=== PATIENT | male | born 1965 | race Caucasian/White ===

== ENCOUNTER 2018-12-07 07:23 | Inpatient (IN) | payer OTHER ==
[2018-12-07] VITALS (28 sets, daily range): BP systolic 99–151; BP diastolic 46–85; PULSE 70–88; RESP 11–21; Ht 188 cm; Wt 122.9 kg
[~2018-12-07] VITALS: Ht 188 cm; Wt 122.9 kg
--- NOTE | 2018-12-07 05:52 | HPN ---
Date/Time of Note Date/Time of Note DATE: 12/07/18 TIME: 05:52 Interval H&P Admission Note Pt. seen H&P reviewed: No system changes PERI RICHARD MD Dec 07, 2018 05:52
--- NOTE | 2018-12-07 05:55 | OPR ---
Date/Time of Note Date/Time of Note DATE: 12/07/18 TIME: 05:53 Operative Report Procedure Date: Dec 07, 2018 Preoperative Diagnosis Right hip primary arthritis Postoperative Diagnosis Right hip primary arthritis Operation/Procedure Performed 1. Right total hip arthroplasty 2. Right hip injection of PRP solution Surgeon see signature line Farm Hand Praveen Alberts DO [employer]: DARYL FLOOD PA-C Anesthesia Type: general Estimated Blood Loss: 200 - 250 ml's Transfusion none Specimen None Grafts/Implants See op note Tubes/Drains BRUSH OPERATOR SURGEON:Praveen Alberts DO was integral to the positioning and assistance necessary in the exposure of the hip joint as well as protection of the neurovascular structures. In my opinion at the assistance offered by a lead technologist in cytogenetics is insufficient and Mr. eKrr should be compensated for his time. PROCEDURE IN DETAIL: Following the administration of general endotracheal anesthesia supplemented with a spinal anesthetic, the patient was placed in the supine position. The antecubital fossa on the right was prepped and 60 cc of blood were aspirated. Under sterile conditions, the blood was passed off to the indirect sales representative from the company who prepared the PRP solution. The right lower extremity was then prepped and draped in the usual sterile fa shion. A sole seamer radiograph was obtained for preliminary limb length and femoral size as well as acetabular size. A lateral incision was then made exposing the tensor fascia the fascia was incised the tensor was retracted laterally and the vessels were cauterized. The anterior capsule was then identified and prepared. A capsulectomy was then performed and the femoral head was then evaluated. Severe arthritic changes were noted. A femoral head cut was then made in the appropriate degree of version and in clination. Following dislocation, severe arthritic changes were noted with very certain severe cystic changes in the femoral head. The acetabulum was then exposed and a capsulectomy and labrectomy were completed. The central portion was then entered and serially reamed up to the 47 mm size. A Depuy [place] cup which was 48 mm, with a standard liner was then fit into position with solid fixation. A 30 mm screw was used for additional fixation. Attention was then directed to the femur, the femur was exposed and prepared. The canal was entered and serially reamed up to the size 3. The femoral canal was then thoroughly irrigated and the PRP solution was then instilled into the femoral canal. A size 3 Depuy Actis stem was then inserted with solid fixation. A 28 mm, +1.5 mm femoral head, which was ceramic was then inserted. The leg was taken through full range of motion with no evident instability. In addition, radiographs revealed excellent position with reproduction of the limb lengths within a millimeter. The wound was irrigated thoroughly. The wound was then closed in layers and a Prenio for the final cover. This was watertight. Estimated blood loss was procedure was 200 cc. Postoperative radiographs will be obtained in the recovery room. Complications none Pt Condition Post Procedure: stable Disposition: PACU Procedure Description BRUSH OPERATOR SURGEON:Praveen Alberts DO was integral to the positioning and a ssistance necessary in the exposure of the hip joint as well as protection of the neurovascular structures. In my opinion at the assistance offered by a lead technologist in cytogenetics is insufficient and he should be compensated for his time. PROCEDURE IN DETAIL: Following the administration of general endotracheal anesthesia supplemented with a spinal anesthetic, the patient was placed in the supine position. The antecubital fossa on the right was prepped and 60 cc of blood were aspirated. Under sterile conditions, the blood was passed off to the indirect sales representative from the company who prepared the PRP solution. The right lower extremity was then prepped and draped in the usual sterile fashion. A sole seamer radiograph was obtained for preliminary limb length and femoral size as well as acetabular size. A lateral incision was then made exposing the tensor fascia the fascia was incised the tensor was retracted laterally and the vessels were cauterized. The anterior capsule was then identified and prepared. A capsulectomy was then performed and the femoral head was then evaluated. Severe arthritic changes were noted. A femoral head cut was then made in the appropriate degree of version and inclination. Following dislocation, severe arthritic changes were noted with very certain severe cystic changes in the femoral head. The acetabulum was then exposed and a capsulectomy and labrectomy were comp leted. The central portion was then entered and serially reamed up to the 47 mm size. A Depuy [place] cup which was 54 mm, with a standard liner was then fit into position with solid fixation. A 30 mm screw was used for additional fixation. Attention was then directed to the femur, the femur was exposed and prepared. The canal was entered and serially reamed up to the size 5. The femoral canal was then thoroughly irrigated and the PRP solution was then instilled into the femoral canal. A size 5Depuy Actis stem was then inserted with solid fixation. A 32 mm, +5 mm femoral head, which was ceramic was then inserted. The leg was taken through full range of motion with no evident instability. In addition, radiographs revealed excellent position with reproduction of the limb lengths within a millimeter. The wound was irrigated thoroughly. The wound was then closed in layers and a Prenio for the final cover. This was watertight. Estimated blood loss was procedure was 250 cc. Postoperative radiographs will be obtained in the recovery room. Complications none PERI RICHARD MD Dec 07, 2018 05:54
[~2018-12-07 07:23] MED LIST: BUPIVACAINE 0.5% (SDV) 30 ML, morphine SULFATE (PF) 8 MG, EPINEPHrine 0.3 MG, KETOROLAC... IRR SCH; CEFAZOLIN 1 GM INJ ONE; CEFAZOLIN 2 GM/50 ML (PMX) 50 ML IVPB ONE; DESFLURANE 15 MIN ONE; DEXAMETHASONE 1 MG TAB PO ONE; GABAPENTIN 300 MG CAP PO ONE; SOD CHLORIDE 0.9% 100 ML, TRANEXAMIC ACID 3,000 MG IRR ONE; SUCCINYLCHOLINE CHLORIDE 100 MG/5 ML SYG IV ONE; TRANEXAMIC ACID 1GM/100ML(PMX) 100 ML IVPB ONE
[2018-12-07] MEDS ORDERED: BUPR300F3 BC (08:31)
[2018-12-07] MEDS ORDERED: ATOR20TA38 PO (08:31)
[2018-12-07] MEDS ORDERED: GABA300C16 PO (08:32)
[2018-12-07] MEDS ORDERED: FLUO20CA38 PO (08:32)
[2018-12-07] MEDS ORDERED: LABE200T25 PO (08:33)
[2018-12-07] MEDS ORDERED: HYDR-3672 PO (08:33)
[2018-12-07] MEDS ORDERED: METF500T3 PO (08:34)
[2018-12-07] MEDS ORDERED: METH750T2 PO (08:35)
[2018-12-07] MEDS ORDERED: OXYC-431 PO (08:36)
[2018-12-07] MEDS ORDERED: VALS160T20 PO (08:37)
[2018-12-07] MEDS ORDERED: SOD CHLORIDE 0.9% 1,000 ML IV SCH (09:00)
[2018-12-07] MEDS ORDERED: THROMBIN 5000 UNIT VIAL ONE (09:26)
[2018-12-07] MEDS ORDERED: CA CHLORIDE (GM) 10% 10 ML INJ ONE (09:27)
[2018-12-07] MEDS ORDERED: POLYMYXIN/BACITRACIN 1L IRRIG ONE (09:27)
--- NOTE | 2018-12-07 09:38 | PREAC ---
Date/Time of Note Date/Time of Note DATE: 12/07/18 TIME: 09:36 Anesthesia Eval and Record Evaluation Time Pre-Procedure Interview DATE: 12/07/18 TIME: 09:36 Age 53 Sex male NPO: 8 hrs Preoperative diagnosis right hip primary OA Planned procedure Right hip replacement Past Medical History Past Medical History: Includes Cardio: HTN, Other (EF 52 % cardiology note) Endo: Diabetes Pulm: Sleep Apnea GI: Morbid obesity Surgery & Anesthesia Issues No known issue Meds Anticoagulation: No Beta Clair within 24 hr: Yes Reason Beta Clair not given: Pt. not on B-Clair Reported Medications Valsartan* (Diovan*) 160 Mg Tablet, 160 MG PO DAILY, TAB 12/07/18 Oxycodone HCl/Acetaminophen (Oxycodone-Acetaminophen 10-325) 1 Each Tablet, 1 EACH PO Q12 PRN for SEVERE PAIN LEVEL 7-10, TAB 12/07/18 Methocarbamol* (Methocarbamol*) 750 Mg Tablet, 750 MG PO TID PRN for MUSCLE SPASMS, TAB 12/07/18 Metformin Hcl* (Metformin Hcl* ER) 500 Mg Tab.sr.24h, 500 MG PO BID, #30 TAB 12/07/18 Labetalol Hcl* (Labetalol Hcl*) 200 Mg Tablet, 400 MG PO BID, TAB 12/07/18 Hydralazine Hcl* (Hydralazine Hcl*) 50 Mg Tab, 50 MG PO BID, #90 TAB 12/07/18 Gabapentin* (Gabapentin*) 300 Mg Capsule, 600 MG PO TID, #180 CAP 12/07/18 Fluoxetine Hcl* (Prozac*) 20 Mg Capsule, 20 MG PO DAILY, CAP 12/07/18 Buprenorphine HCl (Belbuca) 300 Mcg Film, 300 MCG BC BID, FILM 12/07/18 Atorvastatin Calcium* (Atorvastatin Calcium*) 20 Mg Tablet, 20 MG PO QHS, #30 TAB 12/07/18 Current Medications Bupivacaine HCl/ Morphine Sulfate/ Epinephrine/ Ketorolac Tromethamine/ Clon idine/Sodium Chloride/ Vancomycin HCl INTRA-OP IRR ; Start 12/07/18 at 06:00 Sodium Chloride 1,000 ml @ 30 mls/hr Q24H IV Last administered on 12/07/18at 08:56; Admin Dose 30 MLS/HR; Start 12/07/18 at 09:00 Meds reviewed: Yes Allergies Coded Allergies: No Known Allergy (Unverified , 12/07/18) Allergies Reviewed: Yes Labs/Studies Labs Reviewed: Reviewed by anesthesiologist test: N/A Studies: ECG (sr), CXR (nl) Pre-procedure Exam Last vitals Vital Signs Date Temp Pulse Resp B/P (MAP) Pulse Ox O2 O2 Flow FiO2 Time Delivery Rate 12/07/18 98.1 79 16 120/70 98 Room Air 09:00 (87) Airway: Adequate thyromental dist Mallampati: Mallampati III Teeth: Normal Lung: Normal Heart: Normal ASA Physical Status ASA physical status: 2 Emergency: None Planned Anesthetic General/MAC: ETT Planned Pain Management Parenteral pain med Pre-operative Attestations Prior to commencing anesthesia and surgery, the patient was re-evaluated, there was verification of: *The patient's identity *The results of appropriate recent lab work and preoperative vital signs *The above evaluation not changing prior to induction *Anesthetic plan, risk benefits, alternative and complications discussed with patient/family; questions answered; patient/family understands, accepts and wishes to proceed. KAMARI VARNER MD Dec 07, 2018 09:38
[2018-12-07] MEDS ORDERED: HYDROmorphONE 1 MG/5 ML IV SYRINGE IV PRN ×3 (10:00)
[2018-12-07] MEDS ORDERED: DIPHENHYDRAMINE 50 MG INJ IV PRN (10:00)
[2018-12-07] MEDS ORDERED: ONDANSETRON 4 MG INJ IV PRN ×2 (10:00→12:00)
[2018-12-07] MEDS ORDERED: MEPERIDINE 25 MG INJ IV PRN (10:00)
[2018-12-07] MEDS ORDERED: MIDAZOLAM 1 MG/ML 2 ML INJ ONE (10:03)
[2018-12-07] MEDS ORDERED: METOCLOPRAMIDE 10 MG INJ ONE (10:03)
[2018-12-07] MEDS ORDERED: ONDANSETRON 4 MG INJ ONE (10:03)
[2018-12-07] MEDS ORDERED: PROPOFOL 20 ML ONE ×2 (10:03→10:18)
[2018-12-07] MEDS ORDERED: ROCURONIUM 50 MG INJ ONE ×2 (10:03→10:16)
[2018-12-07] MEDS ORDERED: FENTAnyl 50 MCG/ML VIAL ONE (10:07)
[2018-12-07] MEDS ORDERED: CEFAZOLIN 1 GM INJ ONE (10:11)
[2018-12-07] MEDS ORDERED: TRANEXAMIC ACID 1GM/100ML(PMX) 100 ML ONE (10:18)
[2018-12-07] MEDS ORDERED: morphine SULFATE/PF (10 MG/10 ML) INJ ONE (10:18)
[2018-12-07] MEDS ORDERED: EPHEDrine 25 MG/5 ML SYG ONE (10:24)
[2018-12-07] MEDS ORDERED: KETOROLAC 30 MG INJ ONE (11:42)
[2018-12-07] MEDS ORDERED: GLYCOPYRROLATE 0.4 MG INJ ONE (11:46)
[2018-12-07] MEDS ORDERED: NEOSTIGMINE 3 MG/3 ML SYRINGE ONE (11:46)
[2018-12-07] MEDS: DEXAMETHASONE 2 MG TAB PO SCH ×3 (12:00→23:28)
[2018-12-07] MEDS ORDERED: MAGNESIUM HYDROXIDE 30ML CUP PO PRN (12:00)
[2018-12-07] MEDS ORDERED: ZOLPIDEM 5 MG TAB PO PRN (12:00)
[2018-12-07] MEDS ORDERED: NACL 0.9% 3 ML SYG IV SCH (12:00)
[2018-12-07] MEDS ORDERED: oxyCODONE 5 MG TAB PO PRN ×2 (12:00)
--- NOTE | 2018-12-07 13:25 | PAC ---
Date/Time of Note Date/Time of Note DATE: 12/07/18 TIME: 13:24 Post-Anesthesia Notes Post-Anesthesia Note Last documented vital signs Vital Signs Date Temp Pulse Resp B/P (MAP) Pulse Ox O2 O2 Flow FiO2 Time Delivery Rate 12/07/18 99.0 84 15 133/71 96 Nasal 13:00 (91) Cannula 12/07/18 2.0 12:55 12/07/18 99.1 12:22 Activity: WNL Respiratory function: WNL Cardiovascular function: WNL Mental status: Baseline Pain reasonably controlled: Yes Hydration appropriate: Yes Nausea/Vomiting absent: No KAMARI VARNER MD Dec 07, 2018 13:25
[2018-12-07] MEDS: CEFAZOLIN 1 GM/50 ML (PMX) 50 ML IVPB SCH ×2 (13:34→21:50)
[2018-12-07] MEDS: ACETAMINOPHEN 1000MG/100ML IV 100 ML IVPB SCH ×2 (13:48→19:55)
[2018-12-07] MEDS: HYDROmorphONE 1 MG/ML SYG IV PRN ×2 (15:37→22:27)
[2018-12-07] MEDS: oxyCODONE 5 MG TAB PO PRN ×2 (19:40→23:28)
[2018-12-07] MEDS: LACTATED RINGER'S 1,000 ML IV SCH ×2 (19:55→21:45)
[2018-12-07] MEDS ORDERED: BUPRENORPHINE HCL 300 MCG BC SCH (21:00)
[2018-12-07] MEDS: LABETALOL 200 MG TAB PO SCH (21:00)
[2018-12-07] MEDS: ATORVASTATIN 20 MG TAB PO SCH (21:49)
[2018-12-07] MEDS: METHOCARBAMOL 750 MG TAB PO PRN (21:49)
[2018-12-07] MEDS: GABAPENTIN 300 MG CAP PO SCH (21:49)
[2018-12-07] MEDS: SENNA/DOCUSATE NA (8.6MG/50MG) TAB PO SCH (21:50)
[2018-12-08] MEDS: HYDROmorphONE 1 MG/ML SYG IV PRN ×5 (02:30→20:27)
[2018-12-08 02:49] VITALS: BP 132/85; PULSE 86; RESP 18
[2018-12-08] MEDS: oxyCODONE 5 MG TAB PO PRN ×5 (03:22→22:22)
[2018-12-08] MEDS: ACETAMINOPHEN 1000MG/100ML IV 100 ML IVPB SCH (04:07)
[2018-12-08] MEDS: CEFAZOLIN 1 GM/50 ML (PMX) 50 ML IVPB SCH (05:20)
[2018-12-08] MEDS: DEXAMETHASONE 2 MG TAB PO SCH (05:20)
--- NOTE | 2018-12-08 06:10 | PN ---
Date/Time of Note Date/Time of Note DATE: 12/08/18 TIME: 06:09 Subjective Awake and alert this morning. Minimal complaints. Objective Vitals Vital Signs Date Temp Pulse Resp B/P (MAP) Pulse Ox O2 O2 Flow FiO2 Time Delivery Rate 12/08/18 98.0 86 18 132/85 96 Nasal 2.0 02:49 (101) Cannula Intake and Output 12/07/18 12/07/18 12/08/18 1515:00 23:00 07:00 IntakeIntake Total 2100 ml 1510 ml 1900 ml OutputOutput Total 300 ml 1150 ml BalanceBalance 1800 ml 1510 ml 750 ml Wound is clean and dry. Neurologically intact. No signs of DVT. Results Result Diagram: 12/07/18 1249 Medications Medications Current Medications Sodium Chloride 1,000 ml @ 30 mls/hr Q24H IV Last administered on 12/07/18at 08:56; Admin Dose 30 MLS/HR; Start 12/07/18 at 09:00 Atorvastatin Calcium (Lipitor) 20 mg QHS PO Last administered on 12/07/18at 21:49; Admin Dose 20 MG; Start 12/07/18 at 21:00 Fluoxetine HCl (Prozac) 20 mg DAILY PO ; Start 12/08/18 at 09:00 Hydralazine HCl (Apresoline) 50 mg BID PO ; Start 12/07/18 at 21:00 Labetalol HCl (Normodyne) 400 mg BID PO ; Start 12/07/18 at 21:00 Metformin HCl (Glucophage) 500 mg BID WITH MEALS PO ; Start 12/08/18 at 07:50 Methocarbamol (Robaxin) 750 mg TID PRN PO MUSCLE SPASMS Last administered on 12/07/18at 21:49; Admin Dose 750 MG; Start 12/07/18 at 12:00 Miscellaneous Information 300 mcg BID BC ; Start 12/07/18 at 21:00; Status UNV Losartan Potassium (Cozaar) 100 mg DAILY PO ; Start 12/08/18 at 09:00 Lactated Ringer's 1,000 ml @ 100 mls/hr Q10H IV Last administered on 12/07/18at 19:55; Admin Dose 100 MLS/HR; Start 12/07/18 at 11:45 Cefazolin Sodium 50 ml @ 100 mls/hr Q8H IVPB Last administered on 12/08/18 05:20; Admin Dose 100 MLS/HR; Start 12/07/18 at 14:00; Stop 12/08/18 at 06:29 Senna/Docusate Sodium (Senokot-S) 1 tab BID PO Last administered on 12/07/18 21:50; Admin Dose 1 TAB; Start 12/07/18 at 21:00 Simethicone (Mylicon) 80 mg TID PRN PO .GAS; Start 12/07/18 at 12:00 Magnesium Hydroxide (Milk Of Mag) 30 ml BID PRN PO .CONSTIPATION; Start 12/07/18 at 12:00 Magnesium Hydroxide (Milk Of Mag) 30 ml HS PO ; Start 12/09/18 at 21:00 Gabapentin (Neurontin) 300 mg HS PO Last administered on 12/07/18at 21:49; Admin Dose 300 MG; Start 12/07/18 at 21:00 Oxycodone HCl (Roxicodone) 15 mg Q4H PRN PO .PAIN Last administered on 12/08/18 03:22; Admin Dose 15 MG; Start 12/07/18 at 12:00 Oxycodone HCl (Roxicodone) 10 mg Q4H PRN PO .PAIN; Start 12/07/18 at 12:00 Oxycodone HCl (Roxicodone) 5 mg Q4H PRN PO .PAIN; Start 12/07/18 at 12:00 Hydromorphone HCl (Dilaudid) 1 mg Q4H PRN IV .BREAKTHROUGH PAIN Last administered on 12/08/18 02:30; Admin Dose 1 MG; Start 12/07/18 at 12:00 Ondansetron HCl (Zofran Inj) 4 mg Q6H PRN IV NAUSEA/VOMITING; Start 12/07/18 at 12:00 Diphenhydramine HCl (Benadryl) 25 mg Q6H PRN IV .PRURITUS; Start 12/07/18 at 12:00 Zolpidem Tartrate (Ambien) 10 mg HS PRN PO .INSOMNIA; Start 12/07/18 at 12:00 IV Flush (NS 3 ml) 3 ml per protocol IV ; Start 12/07/18 at 12:00 Aspirin (Ecotrin) 325 mg DAILY PO ; Start 12/08/18 at 09:00 VTE Prophylaxis Risk score (from Ns)>0 risk: 9 SCD applied (from [facility] [place] Yes Lines/Catheters IV Catheter Type: Saline Lock Bean in Place: No Assessment/Plan Assessment/Plan Assessment: Status post total hip replacement Plan: Begin physical therapy this morning. Discharge when cleared by PT PERI RICHARD MD Dec 08, 2018 06:10
--- NOTE | 2018-12-08 06:11 | DS ---
Date/Time of Note Date/Time of Note DATE: 12/08/18 TIME: 06:10 Discharge Summary Admission/Discharge Info Admit Date/Time Dec 07, 2018 at 07:23 Discharge Date/Time December 08 Discharge Diagnosis Hip arthritis Patient Condition: Good Hospital Course Patient was admitted and underwent uncomplicated procedure. Following clearance by physical therapy he is seen to be discharged home Home Meds Reported Medications Valsartan* (Diovan*) 160 Mg Tablet, 160 MG PO DAILY, TAB 12/07/18 Oxycodone HCl/Acetaminophen (Oxycodone-Acetaminophen 10-325) 1 Each Tablet, 1 E ACH PO Q12 PRN for SEVERE PAIN LEVEL 7-10, TAB 12/07/18 Methocarbamol* (Methocarbamol*) 750 Mg Tablet, 750 MG PO TID PRN for MUSCLE SPASMS, TAB 12/07/18 Metformin Hcl* (Metformin Hcl* ER) 500 Mg Tab.sr.24h, 500 MG PO BID, #30 TAB 12/07/18 Labetalol Hcl* (Labetalol Hcl*) 200 Mg Tablet, 400 MG PO BID, TAB 12/07/18 Hydralazine Hcl* (Hydralazine Hcl*) 50 Mg Tab, 50 MG PO BID, #90 TAB 12/07/18 Gabapentin* (Gabapentin*) 300 Mg Capsule, 600 MG PO TID, #180 CAP 12/07/18 Fluoxetine Hcl* (Prozac*) 20 Mg Capsule, 20 MG PO DAILY, CAP 12/07/18 Buprenorphine HCl (Belbuca) 300 Mcg Film, 300 MCG BC BID, FILM 12/07/18 Atorvastatin Calcium* (Atorvastatin Calcium*) 20 Mg Tablet, 20 MG PO QHS, #30 TAB 12/07/18 Primary Care Provider Not On Staff Doctor Pending Labs Laboratory Tests Test 12/07/18 08:40 12/07/18 12:49 12/07/18 22:00 12/08/18 04:58 Bedside 133 135 Glucose mg/dL (70-220) mg/dL (70-220) White Blood 9.7 Pending Count 10^3/ul (4.8-10 .8) Red Blood 4.50 Pending Count 10^6/ul (4.70-6 .10) Hemoglobin 12.9 Pending g/dl (14.0-18.0 ) Hematocrit 40.1 Pending % (42.0-52.0) Mean 89.1 Pending Corpuscular fl (82.0-101.0) Volume Mean 28.7 Pending Corpuscular pg (29.0-33.0) Hemoglobin Mean 32.2 Pending Corpuscular g/dl (32.0-37.0 Hemoglobin Conc ) ent Red Cell 13.2 Pending Distribution % (11.5-14.5) Width Platelet Count 247 Pending 10^3/UL (140-41 5) Mean Platelet 9.6 Pending Volume fl (7.4-10.4) Immature 0.500 Granulocytes % % (0.001-0.429) Neutrophils % 89.1 % (39.0-77.0) Lymphocytes % 7.4 % (15.0-51.0) Monocytes % 2.5 % (0.0-11.0) Eosinophils % 0.3 % (0.0-7.0) Basophils % 0.2 % (0.0-2.0) Nucleated Red 0.0 Blood Cells % /100WBC (0.0-0. 0) Immature 0.050 Granulocytes # 10^3/ul (0.0-0. 031) Neutrophils # 8.6 10^3/ul (1.6-7. 5) Lymphocytes # 0.7 10^3/ul (0.8-2. 9) Monocytes # 0.2 10^3/ul (0.3-0. 9) Eosinophils # 0.0 10^3/ul (0.0-0. 5) Basophils # 0.0 10^3/ul (0.0-0. 1) Nucleated Red 0.0 Blood Cells # 10^3/ul (0.0-0. 0) PERI RICHARD MD Dec 08, 2018 06:11
--- NOTE | 2018-12-08 07:01 | PDOCDIS ---
Discharge Instructions DIAGNOSIS Discharge Diagnosis Hip arthritis CONDITION [id number] Patient Condition: [id number] Good HOME CARE INSTRUCTIONS: [id number] Diet Instructions: [id number] Regular ACTIVITY: [id number] Activity Restrictions: [id number] Slowly Increase Activity [id number] Bathing Restrictions: [id number] Shower FOLLOW UP/APPOINTMENTS Follow-up Plan 2 weeks SCHOOL/WORK RELEASE May return to School/Work with: With Restrictions School/Work Release Comment: No hip extension for six weeks PERI RICHARD MD Dec 08, 2018 07:01
[2018-12-08 07:32] VITALS: BP 160/62; RESP 19
[2018-12-08] MEDS: LACTATED RINGER'S 1,000 ML IV SCH (07:45)
[2018-12-08] MEDS: ASPIRIN (EC) 325 MG TAB PO SCH (08:44)
[2018-12-08] MEDS: metFORMIN 500 MG TAB PO SCH ×2 (08:44→18:07)
[2018-12-08] MEDS: FLUOXETINE 20 MG CAP PO SCH (08:44)
[2018-12-08] MEDS: SENNA/DOCUSATE NA (8.6MG/50MG) TAB PO SCH ×2 (08:44→20:21)
[2018-12-08] MEDS: LABETALOL 200 MG TAB PO SCH ×2 (08:47→20:20)
[2018-12-08] MEDS: LOSARTAN 50 MG TAB PO SCH (08:48)
[2018-12-08 14:28] VITALS: BP 151/62; RESP 18
[2018-12-08 19:35] VITALS: BP 163/80; PULSE 78; RESP 18
[2018-12-08] MEDS: ATORVASTATIN 20 MG TAB PO SCH (20:19)
[2018-12-08] MEDS: GABAPENTIN 300 MG CAP PO SCH (20:21)
[2018-12-08] MEDS: DIPHENHYDRAMINE 50 MG INJ IV PRN (22:30)
[2018-12-09 02:30] VITALS: BP 144/76; PULSE 65; RESP 18
[2018-12-09 07:56] VITALS: BP_SYST 177; BP_DIAS 9; BP_DIAS 90; PULSE 72; RESP 18
[2018-12-09] MEDS: oxyCODONE 5 MG TAB PO PRN ×4 (08:27→20:57)
[2018-12-09] MEDS: metFORMIN 500 MG TAB PO SCH ×2 (08:42→17:56)
[2018-12-09] MEDS: SENNA/DOCUSATE NA (8.6MG/50MG) TAB PO SCH ×2 (08:42→20:51)
[2018-12-09] MEDS: FLUOXETINE 20 MG CAP PO SCH (08:42)
[2018-12-09] MEDS: ASPIRIN (EC) 325 MG TAB PO SCH (08:43)
[2018-12-09] MEDS: LABETALOL 200 MG TAB PO SCH ×2 (08:43→20:51)
[2018-12-09] MEDS: LOSARTAN 50 MG TAB PO SCH (08:43)
[2018-12-09] MEDS: METHOCARBAMOL 750 MG TAB PO PRN ×2 (10:33→17:56)
[2018-12-09 14:00] VITALS: BP 148/78; PULSE 70; RESP 18
[2018-12-09 19:30] VITALS: BP 167/86; PULSE 75; RESP 18
[2018-12-09] MEDS: GABAPENTIN 300 MG CAP PO SCH (20:49)
[2018-12-09] MEDS: ATORVASTATIN 20 MG TAB PO SCH (20:51)
[2018-12-09] MEDS ORDERED: MAGNESIUM HYDROXIDE 30ML CUP PO SCH (21:00)
[2018-12-09] MEDS: DIPHENHYDRAMINE 50 MG INJ IV PRN (22:57)
[2018-12-10 02:00] VITALS: BP 164/79; PULSE 71; RESP 18
[2018-12-10] MEDS: oxyCODONE 5 MG TAB PO PRN ×3 (02:33→12:49)
[2018-12-10 07:00] VITALS: BP 179/88; PULSE 60; RESP 18
--- NOTE | 2018-12-10 08:33 | PN ---
Date/Time of Note Date/Time of Note DATE: 12/10/18 TIME: 08:32 Subjective Better and feels more stable Objective Vitals Vital Signs Date Temp Pulse Resp B/P (MAP) Pulse Ox O2 O2 Flow FiO2 Time Delivery Rate 12/10/18 98.3 71 18 164/79 97 02:00 (107) 12/09/18 Nasal 2.0 22:01 Cannula Intake and Output 12/09/18 12/09/18 12/10/18 1515:00 23:00 07:00 IntakeIntake Total 2000 ml BalanceBalance 2000 ml Wound cleand and Dry. CMS intact. No signs DVT Results Result Diagram: 12/10/18 0445 Medications Medications Current Medications Atorvastatin Calcium (Lipitor) 20 mg QHS PO Last administered on 12/09/18 20:51; Admin Dose 20 MG; Start 12/07/18 at 21:00 Fluoxetine HCl (Prozac) 20 mg DAILY PO Last administered on 12/09/18 08:42; Ad min Dose 20 MG; Start 12/08/18 at 09:00 Hydralazine HCl (Apresoline) 50 mg BID PO Last administered on 12/09/18 20:52; Admin Dose 50 MG; Start 12/07/18 at 21:00 Labetalol HCl (Normodyne) 400 mg BID PO Last administered on 12/09/18 20:51; Admin Dose 400 MG; Start 12/07/18 at 21:00 Metformin HCl (Glucophage) 500 mg BID WITH MEALS PO Last administered on 12/09/18 17:56; Admin Dose 500 MG; Start 12/08/18 at 07:50 Methocarbamol (Robaxin) 750 mg TID PRN PO MUSCLE SPASMS Last administered on 17:56; Admin Dose 750 MG; Start 12/07/18 at 12:00 Miscellaneous Information 300 mcg BID BC ; Start 12/07/18 at 21:00; Status UNV Losartan Potassium (Cozaar) 100 mg DAILY PO Last administered on 12/09/18 08:43; Admin Dose 100 MG; Start 12/08/18 at 09:00 Senna/Docusate Sodium (Senokot-S) 1 tab BID PO Last administered on 12/09/18 20:51; Admin Dose 1 TAB; Start 12/07/18 at 21:00 Simethicone (Mylicon) 80 mg TID PRN PO .GAS; Start 12/07/18 at 12:00 Magnesium Hydroxide (Milk Of Mag) 30 ml BID PRN PO .CONSTIPATION; Start 12/07/18 at 12:00 Magnesium Hydroxide (Milk Of Mag) 30 ml HS PO Last administered on 12/09/18 20:52; Admin Dose 30 ML; Start 12/09/18 at 21:00 Gabapentin (Neurontin) 300 mg HS PO Last administered on 12/09/18 20:49; Admin Dose 300 MG; Start 12/07/18 at 21:00 Oxycodone HCl (Roxicodone) 15 mg Q4H PRN PO .PAIN Last administered on 12/10/18 08:24; Admin Dose 15 MG; Start 12/07/18 at 12:00 Oxycodone HCl (Roxicodone) 10 mg Q4H PRN PO .PAIN; Start 12/07/18 at 12:00 Oxycodone HCl (Roxicodone) 5 mg Q4H PRN PO .PAIN; Start 12/07/18 at 12:00 Hydromorphone HCl (Dilaudid) 1 mg Q4H PRN IV .BREAKTHROUGH PAIN Last administered on 12/08/18 20:27; Admin Dose 1 MG; Start 12/07/18 at 12:00 Ondansetron HCl (Zofran Inj) 4 mg Q6H PRN IV NAUSEA/VOMITING; Start 12/07/18 at 12:00 Diphenhydramine HCl (Benadryl) 25 mg Q6H PRN IV .PRURITUS Last administered on 12/09/18 22:57; Admin Dose 25 MG; Start 12/07/18 at 12:00 Zolpidem Tartrate (Ambien) 10 mg HS PRN PO .INSOMNIA; Start 12/07/18 at 12:00 IV Flush (NS 3 ml) 3 ml per protocol IV ; Start 12/07/18 at 12:00 Aspirin (Ecotrin) 325 mg DAILY PO Last administered on 12/09/18 08:43; Admin Dose 325 MG; Start 12/08/18 at 09:00 Miscellaneous Information (*Order Clarification Bulletin) MEDICATION REQUIRES CLARIFICATI... Q8H XX ; Start 12/08/18 at 09:00 VTE Prophylaxis Risk score (from Ns)>0 risk: 8 SCD applied (from [facility]): Yes Lines/Catheters IV Catheter Type: Saline Lock Bean in Place: No Assessment/Plan Hospital Course Patient was admitted and underwent uncomplicated procedure. Following clearance by physical therapy he is seen to be discharged home Assessment/Plan A: S/p THR with slow mobilization P: Home this AM after PT PERI RICHARD MD Dec 10, 2018 08:33
[2018-12-10] MEDS: FLUOXETINE 20 MG CAP PO SCH (08:38)
[2018-12-10] MEDS: metFORMIN 500 MG TAB PO SCH (08:39)
[2018-12-10] MEDS: ASPIRIN (EC) 325 MG TAB PO SCH (08:39)
[2018-12-10] MEDS: LABETALOL 200 MG TAB PO SCH (08:39)
[2018-12-10] MEDS: SENNA/DOCUSATE NA (8.6MG/50MG) TAB PO SCH (08:39)
[2018-12-10] MEDS: LOSARTAN 50 MG TAB PO SCH (08:39)
[2018-12-10 14:00] VITALS: BP 149/69; PULSE 62; RESP 18
[2018-12-10] MEDS: METHOCARBAMOL 750 MG TAB PO PRN (14:49)
== END 2018-12-10 16:05 | disposition home or self-care (01) | DRG 470 ==
LOC: REC 07:23 → MS1 14:05
PROVIDERS: ADMIT Orthopaedic Surgery; ATTEND Orthopaedic Surgery
PROC: 0SRR03A Replacement of Right Hip Joint, Femoral Surface with Ceramic Synthetic Substitute, Uncemented, Open Approach (ICD-10-PCS; principal; 2018-12-07 09:30)
DX: M16.11 Unilateral primary osteoarthritis, right hip (principal); E11.9 Type 2 diabetes mellitus without complications; E78.5 Hyperlipidemia, unspecified; I10 Essential (primary) hypertension; E66.9 Obesity, unspecified; Z68.34 Body mass index [BMI] 34.0-34.9, adult
CPT/HCPCS: 72170; 73530; 82962; 85025; 86999; 88304; 88311; 97110; 97116; 97161; 97530; A4310; C1713; C1776; J0131; J0171; J0690; J0735; J1170; J1200; J1885; J2250; J2274; J2405; J2710; J2765; J3010; J3370; J7030; J7120